=== PATIENT | female | born 1935 | race Caucasian/White ===

== ENCOUNTER → 2017-04-21 | Outpatient (CLI) | payer MEDICARE ==
--- NOTE | 2017-04-21 14:11 | Diagnostic Imaging Report ---
EXAMINATION: Head CT HISTORY: Loss of vision left eye, evaluate for stroke, unsteady gait COMPARISON: None. TECHNIQUE: Multidetector axial images were obtained without contrast from the foramen magnum to the vertex . The images were reconstructed using brain and bone algorithms. Thin section brain images were reformatted into coronal and sagittal planes. Intravenous contrast: None. Motion/streaking artifact limits the evaluation of the skull base and posterior cranial fossa. FINDINGS: Parenchyma: 1. Severe confluent periventricular, marin radiata and centrum semiovale white matter hypodensities, most likely nonspecific microvascular ischemic changes. 2. No mass or hemorrhage. No CT evidence of acute territorial vascular insult. Extra-axial spaces:No abnormal density. No extra-axial fluid collections Brain volume: Normal for age. Ventricles: No hydrocephalus or displacement. Arteries: No density suggestive of thrombus. Dural sinuses: No abnormal density. Extra-axial spaces: No abnormal density. Foramen magnum: No mass, Chiari malformation, or basilar invagination. Sella: No obvious mass. Paranasal/mastoid sinuses: Imaged portions unremarkable. Skull/Scalp: No lytic or blastic lesions. No fractures. IMPRESSION: 1. No acute intracranial hemorrhage or cortical infarcts. 2. Severe confluent white matter chronic microvascular ischemic changes, superimposed acute subcortical infarct cannot be excluded. If clinical concern consider brain MRI for further evaluation. Signed by: Dr. Morena Bundy M.D. on 04/21/2017 2:08 PM
--- NOTE | 2017-04-21 14:15 | Diagnostic Imaging Report ---
EXAMINATION: CT of the orbits without contrast CLINICAL HISTORY: Loss of vision left eye, evaluate for stroke, unsteady gait COMPARISON:Head CT performed on the same day TECHNIQUE: The orbits were scanned utilizing a multidetector helical scanner from the skull base to the vertex. Multiplanar sagittal and coronal reconstructions were performed as well. FINDINGS: Globes: Normal Optic nerves: Normal size. Orbital fat: Normal. Extraocular muscles: Normal. Preseptal soft tissues: Normal. Lacrimal glands: Normal. Sella turcica: No enlargement. Cavernous sinuses: No abnormalities in this unenhanced study. Paranasal sinuses: Clear. Superior ophthalmic veins: Grossly normal abnormalities, no enlarged IMPRESSION: No orbits abnormalities to explain the patient's symptoms. Signed by: Dr. Morena Bundy M.D. on 04/21/2017 2:11 PM
== END ==
LOC: CT 12:29
PROVIDERS: ATTEND Ophthalmology
DX: R27.9 Unspecified lack of coordination (principal); H40.89 Other specified glaucoma; H54.62 Unqualified visual loss, left eye, normal vision right eye
CPT/HCPCS: 70450; 70480

== ENCOUNTER 2019-06-05 06:00 | Inpatient (IN) | payer MEDICARE, OTHER ==
[~2019-06-05] VITALS: Ht 152.4 cm; Wt 66.7 kg
--- OUTSIDE RECORDS SUMMARY | 2019-06-05 06:02 | XMS REPORT ---
Author Author [facility] Address Unknown Phone Unavailable Care Team Providers Care Anode Adjuster Name Role Phone Kate BENNETT Unavailable Unavailable Problems This patient has no known problems. Allergies, Adverse Reactions, Alerts This patient has no known allergies or adverse reactions. Medications This patient has no known medications. Results Test Description Test Time Test Comments Text Results Atomic Results Result Comments CT BRAIN WO [place] [address] Patient Name: TRUNG ROBLERO MR #: [id number] : 1935 Age/Sex: 82/F Req #: [id number] Adm Physician: Ordered by: KIKE BENNETT M.D. Report #: [id number] Location: CT Room/Bed: Procedure: [id number] CT/CT BRAIN WO Exam Date: Exam Time: REPORT STATUS: Signed EXAMINATION: Head CT HISTORY: Loss of vision left eye, evaluate for stroke, unsteady gait COMPARISON: None. TECHNIQUE: Multidetector axial images were obtained without contrast from the foramen magnum to the vertex . The images were reconstructed using brain and bone algorithms. Thin section brain images were reformatted into coronal and sagittal planes. Intravenous contrast: None. Motion/streaking artifact limits the evaluation of the skull base and posterior cranial fossa. FINDINGS: Parenchyma: 1. Severe confluent periventricular, marin radiata and centrum semiovale white matter hypodensities, most likely nonspecific microvascular ischemic changes. 2. No mass or hemorrhage. No CT evidence of acute territorial vascular insult. Extra-axial spaces:No abnormal density. No extra-axial fluid collections Brain volume: Normal for age. Ventricles: No hydrocephalus or displacement. Arteries: No density suggestive of thrombus. Dural sinuses: No abnormal density. Extra-axial spaces: No abnormal density. Foramen magnum: No mass, Chiari malformation, or basilar invagination. Sella: No obvious mass. Paranasal/mastoid sinuses: Imaged portions unremarkable. Skull/Scalp: No lytic or blastic lesions. No fractures. IMPRESSION: 1. No acute intracranial hemorrhage or cortical infarcts. 2. Severe confluent white matter chronic microvascular ischemic changes, superimposed acute subcortical infarct cannot be excluded. If clinical concern consider brain MRI for further evaluation. Signed by: Dr. Florencio Bundy M.D. on 04/21/2017 2:08 PM Dictated By: FLORENCIO BUNDY MD 07 Transcribed By: CHANNING on 04/21/171407 COPY TO: KIKE BENNETT M.D. CT ORBIT/SELLA/PF WO [place] [address] Patient Name: TRUNG ROBLERO MR #: [id number] : 1935 Age/Sex: 82/F Req #: [id number] Adm Physician: Ordered by: KIKE BENNETT M.D. Report #: [id number] Location: CT Room/Bed: Procedure: [id number] CT/CT ORBIT/SELLA/PF WO Exam Date: 04/21/17 Exam Time: 1314 REPORT STATUS: Signed EXAMINATION: CT of the orbits without contrast CLINICAL HISTORY: Loss of vision left eye, evaluate for stroke, unsteady gait COMPARISON:Head CT performed on the same day TECHNIQUE: The orbits were scanned utilizing a multidetector helical scanner from the skull base to the vertex. Multiplanar sagittal and coronal reconstructions were performed as well. FINDINGS: Globes: Normal Optic nerves: Normal size. Orbital fat: Normal. Extraocular muscles: Normal. Preseptal soft tissues: Normal. Lacrimal glands: Normal. Sella turcica: No enlargement. Cavernous sinuses: No abnormalities in this unenhanced study. Paranasal sinuses: Clear. Superior ophthalmic veins: Grossly normal abnormalities, no enlarged IMPRESSION: No orbits abnormalities to explain the patient's symptoms. Signed by: Dr. Florencio Bundy M.D. on 04/21/2017 2:11 PM Dictated By: FLORENCIO BUNDY MD 1411 Transcribed By: CHANNING on 04/21/17 1411 COPY TO: KIKE BENNETT M.D.
--- NOTE | 2019-06-05 06:55 | NUR ---
Report to YAIR Jerry.
[2019-06-05] MEDS ORDERED: ONDANSETRON HCL INJ 2MG/ML 2ML 2 MG/ML VIAL IV PRN ×2 (08:15→12:15)
[2019-06-05] MEDS ORDERED: MORPHINE SULFATE INJ 4 MG/ML INJ 1ML IV PRN (08:15)
--- NOTE | 2019-06-05 08:40 | NUR ---
incontinence care provided for urine for patient with assistance x1. Patient placed into clean adult brief and hospital gown and clean lencho placed under patient. Also placed non slip socks on patient.
[2019-06-05] MEDS: SODIUM CHLORIDE 0.9% 1000ML 1,000 ML IV SCH ×2 (09:00→22:11)
--- NOTE | 2019-06-05 09:03 | Diagnostic Imaging Report ---
Bilateral hips, 2 views History:Status post fall Comparison:None Findings: Acute fracture of the right inferior pubic ramus is noted. No additional acute fracture is identified. Moderate underlying osteopenia. Advanced peripheral vascular calcifications. No additional significant bone or joint space abnormality. Impression: Acute fracture of the right inferior pubic ramus. Signed by: Ismael Berg MD on 06/05/2019 9:00 AM
[2019-06-05 09:12] LABS: BASOPHILS % 0.3 % (0.0-1.0); EOSINOPHILS % 0.2 % (0.0-6.0); HEMATOCRIT 42.4 % (34.2-44.1); HEMOGLOBIN 13.7 g/dL (12.0-16.0); LYMPHOCYTES # (AUTO) 1.4 (1.0-3.2); LYMPHOCYTES % 10.3 % (18.0-39.1); MEAN CORPUSCULAR HEMOGLOBIN 28.6 pg (28-32); MEAN CORPUSCULAR HGB CONC 32.3 g/dL (31-35); MEAN CORPUSCULAR VOLUME 88.5 fL (81-99); MONOCYTES # (AUTO) 0.8 (0.2-0.8); MONOCYTES % 5.7 % (4.4-11.3); PLATELET COUNT 240 x10e3/uL (140-360); RED BLOOD COUNT 4.79 x10e6/uL (3.6-5.1); RED CELL DISTRIBUTION WIDTH 13.5 % (11.7-14.4)
--- NOTE | 2019-06-05 09:23 | NUR ---
attempted to call report was placed on hold for an extended period of time. Will call back.
[2019-06-05 09:29] LABS: ALANINE AMINOTRANSFERASE 11 IU/L (0-55); ALBUMIN 4.3 g/dL (3.5-5.0); ALBUMIN/GLOBULIN RATIO 1.3 (0.8-2.0); ALKALINE PHOSPHATASE 103 IU/L (40-150); ANION GAP 13.4 mmol/L (8-16); BLOOD UREA NITROGEN 13 mg/dL (7-26); BUN/CREATININE RATIO 15 (6-25); CALCIUM 9.5 mg/dL (8.4-10.2); CARBON DIOXIDE 28 mmol/L (22-29); CHLORIDE 97 mmol/L (98-107); CREATININE, SERUM 0.84 mg/dL (0.57-1.11); EST GLOMERULAR FILTRATION RATE > 60 ML/MIN (60-); GLUCOSE 98 mg/dL (74-118); POTASSIUM 4.4 mmol/L (3.5-5.1); SODIUM 134 mmol/L (136-145)
[2019-06-05 09:35] LABS: INR 0.96; PROTHROMBIN TIME 13.3 seconds (11.9-14.5)
[2019-06-05] MEDS ORDERED: TRAVOPROST2.5 ML OU (09:45)
[2019-06-05] MEDS ORDERED: LOPRESSOR25 MG PO (09:45)
[2019-06-05] MEDS ORDERED: CITALOPRAM HBR20 MG PO (09:45)
[2019-06-05] MEDS ORDERED: OSELTAMIVIR PHO75 MG (09:45)
[2019-06-05] MEDS ORDERED: TIMOLOL MALEATE5 M1 (09:45)
[2019-06-05] MEDS ORDERED: EZETIMIBE10 MG PO (09:45)
[2019-06-05] MEDS ORDERED: OMEPRAZOLE40 MG PO (09:45)
[2019-06-05] MEDS ORDERED: SIMVASTATIN40 MG PO (09:45)
[2019-06-05] MEDS ORDERED: CARBIDOPA-LEVO1 EACH PO (09:45)
[2019-06-05 10:30] VITALS: BP 195/85
[2019-06-05 10:42] VITALS: BP 195/85
--- NOTE | 2019-06-05 10:48 | NUR ---
Patient arrived to the unit @ 1012 from the ER via stretcher. Patient in stable condition, no s/s of distress. No complaints of pain. Air pump applied. Upon assessment heel protectors applied bilaterally. Bilateral bruising noted to the hands. Left heel blanchable redness noted. IV fluids infusing. Bed low and locked. Bed alarm in place and working. call light within reach.
[2019-06-05] MEDS ORDERED: ACETAMINOPHEN 325 MG TAB PO PRN (12:15)
[2019-06-05] MEDS ORDERED: GUAIFENESI100 MG/5 M PO (12:36)
[2019-06-05] MEDS ORDERED: ASPIR 8181 MG PO (12:36)
[2019-06-05] MEDS ORDERED: NEPHRO-VITE TABL1 EA PO (12:36)
[2019-06-05] MEDS ORDERED: ASCORBIC ACID500 MG PO (12:36)
[2019-06-05] MEDS ORDERED: TRAVATAN Z OD (12:36)
[2019-06-05] MEDS ORDERED: SODIUM CHLORIDE1 GM PO (12:36)
[2019-06-05] MEDS ORDERED: IPRAT-ALBUT 0.5-3 ML INH (12:36)
[2019-06-05] MEDS ORDERED: NITROGLYCERIN0.4 MG SL (12:36)
[2019-06-05] MEDS ORDERED: FERROUS SULFAT325 MG PO (12:36)
[2019-06-05] MEDS ORDERED: Lorazepam PO (12:36)
[2019-06-05] MEDS ORDERED: MAALOX MAXIMUM355 ML PO (12:38)
[2019-06-05] MEDS ORDERED: ALBUTEROL/IPRATROPIUM 3 ML NEB NEB PRN (12:45)
[2019-06-05] MEDS: METOPROLOL TARTRATE 25 MG TAB PO SCH ×2 (13:15→21:30)
[2019-06-05] MEDS: CEFTRIAXONE SOD 1 GM/NS 50 ML 50 ML IV SCH (13:15)
[2019-06-05 13:49] VITALS: BP 140/80
--- NOTE | 2019-06-05 13:50 | NUR ---
DE SANTIAGO INSERTED AT 1340- URINE SAMPLE COLLECTED AND SENT TO LAB. DIAPER APPLIED. PATIENT REPOSITION- BED ALARM APPLIED AND 3 SIDE RAILS RAISED. CALL LIGHT WITHIN REACH- PATIENT INSTRUCTED TO CALL FOR ASSISTANCE NEEDED.
[2019-06-05 14:09] LABS: CLARITY,URINE SL CLOUDY (CLEAR); COLOR,URINE YELLOW (YELLOW); LEUKOCYTE ESTERASE ,URINE 1+ (NEGATIVE); NITRITE,URINE POSITIVE (NEGATIVE)
[2019-06-05 14:10] LABS: BILIRUBIN,URINE NEGATIVE (NEGATIVE); KETONES,URINE TRACE (NEGATIVE); PROTEIN,URINE DIPSTICK TRACE (NEGATIVE); URINE UROBILINOGEN 0.2 mg/dL (0.2 - 1)
[2019-06-05] MEDS: CARBIDOPA/LEVODOPA 10/100 TAB PO SCH ×2 (14:17→21:30)
[2019-06-05 14:21] LABS: BACTERIA,URINE MANY /HPF; EPITHELIAL CELLS,URINE FEW /LPF
[2019-06-05] MEDS ORDERED: TIMOLOL OU (14:39)
[2019-06-05 16:26] VITALS: BP 194/93
--- NOTE | 2019-06-05 16:45 | NUR ---
ORTHOPEDIC CONSULTATION 84 year old female who is a poor historian due to her dementia and parkinsons with complaints of right hip pain. She denies any numbness, paresthesias or loss of distal motor function. Complains of some mild low back pain. PMdHx: Parkinsons, Demential, Anxiety, GERD Allergies: NKDA SurgHx: Unable to obtain FamHx: Non-contributory SocHx: Neg Tob, EtOH, Drugs VS T 98.4 HR 85 RR 18 BP 194/93 O2 96% Bilateral lower legs & back - no open lesions or sores, no gross deformity TTP of Right greater trochanter and superior and inferior pubic rami Motor: +EHL, FHL, TA, G/S Sensation grossly intact Pulses + DP, Post tib Compartments soft Negative calf tenderness Unable to straight leg raise. Pain with heel strike XRays - acute right superior and inferior pubic rami fracture 84 year old female with right superior and inferior pubic rami fracture Plan for CT of Pelvis and Low back Analgesics DVT Prophylaxis If CT demonstrates only superior and inferior pubic rami fracture, patient is WBAT Plan for Physical Therapy BYRON Mable Lawler, DO [facility]
--- NOTE | 2019-06-05 16:52 | NUR ---
ST Note: Order for bedside swallow eval noted. Discussed case with YARI Andino. Pt NPO for procedure. Will complete eval when able.
[2019-06-05] MEDS: LORAZEPAM INJ 2 MG/ML VIAL IV PRN (18:35)
--- NOTE | 2019-06-05 19:25 | NUR ---
PATIENT RETURN TO THE UNIT FROM RADIOLOGY- IN STABLE CONDITION WITH NO S/S OF RESPIRATORY DISTRESS. NO PAIN INDICATED. TELEMETRY APPLIED. DE SANTIAGO INTACT AND DRAINING. HEEL PROTECTORS APPLIED BILATERALLY. BED ALARM APPLIED; 3 RAILS RAISED. CALL LIGHT IS WITHIN REACH, PATIENT INSTRUCTED TO CALL FOR ASSISTANCE NEEDED. BEDSIDE SHIFT REPORT GIVEN TO ONCOMING NURSE.
--- NOTE | 2019-06-05 20:31 | Diagnostic Imaging Report ---
EXAM: CT Pelvis WITHOUT contrast INDICATION: r/o fracture COMPARISON: None. TECHNIQUE: Pelvis were scanned utilizing a multidetector helical scanner from the iliac crest to the pubic symphysis without administration of IV contrast. Coronal and sagittal reformations were obtained. Routine protocol was performed. IV CONTRAST: None ORAL CONTRAST: Water COMPLICATIONS: None RADIATION DOSE: Total DLP: 1058.87 mGy*cm Estimated effective dose: (DLP x 0.015 x size factor) mSv CTDIvol has been reviewed. It is below the limits set by the Radiation Protocol Committee (RPC). FINDINGS: LINES and TUBES: There is a Staley catheter in place. GI TRACT: No abnormal distention, wall thickening, or evidence of bowel obstruction. PELVIC ORGANS/BLADDER: Calcified leiomyomatous uterus. A pessary device is in place. LYMPH NODES: No lymphadenopathy. VESSELS: Aortobiiliac stent in place. PERITONEUM / RETROPERITONEUM: No free air or fluid. BONES: There is a segmental mildly displaced fracture of the right inferior pubic ramus/ischium with half shaft width lateral displacement of the fracture fragment. SOFT TISSUES: Unremarkable. IMPRESSION: Mildly displaced fracture of the right inferior pubic ramus. Signed by: Krik Gracia MD on 06/05/2019 8:28 PM
--- NOTE | 2019-06-05 20:33 | Diagnostic Imaging Report ---
EXAMINATION: CHEST SINGLE (PORTABLE) INDICATION: ^r/o PNA ^[id number] ^[id number]. COMPARISON: None FINDINGS: AP view TUBES and LINES: None. LUNGS/PLEURA: There is left basilar opacity which could be due to combination of atelectasis or effusion. : No pleural effusion or pneumothorax. HEART AND MEDIASTINUM: The cardiomediastinal silhouette is unremarkable. BONES AND SOFT TISSUES: No acute osseous lesion. Soft tissues are unremarkable. UPPER ABDOMEN: No free air under the diaphragm. IMPRESSION: Left basilar opacity which could be due to combination of atelectasis or effusion. Signed by: Kirk Gracia MD on 06/05/2019 8:30 PM
[2019-06-05 20:34] VITALS: BP 189/93
[2019-06-05 21:00] VITALS: BP 189/93
[2019-06-05] MEDS: TRAVOPROST(OPTH) 2.5 ML BTL OP SCH (21:30)
[2019-06-05] MEDS: SIMVASTATIN 40 MG TAB PO SCH (21:30)
[2019-06-06] VITALS (7 sets, daily range): BP systolic 135–183; BP diastolic 69–90
[2019-06-06] MEDS: HYDRALAZINE HCL 20 MG/ML VIAL IV PRN ×2 (05:45→11:24)
--- NOTE | 2019-06-06 07:00 | NUR ---
Bedside report and rounding completed with oncoming nurse. Patient in bed with call light within reach. Bed locked and in lowest position. No issues or concerns noted.
--- NOTE | 2019-06-06 07:15 | NUR ---
PATIENT IS ALERT TO SELF -REMAINS IN STABLE CONDITION WITH NO S/S OF RESPIRATORY DISTRESS. NO PAIN INDICATED. IV FLUIDS INFUSING. TELEMETRY APPLIED. DE SANTIAGO INTACT AND DRAINING; DIAPER APPLIED. BED ALARM AND 3 SIDE RAILS APPLIED. CALL LIGHT IS WITHIN REACH, PATIENT INSTRUCTED TO CALL FOR ASSISTANCE NEEDED.
--- NOTE | 2019-06-06 07:34 | Diagnostic Imaging Report ---
History: Right hip pain, rule out fracture. Comparison studies: Same day pelvic CT. Technique: Axial images were obtained through the lumbar spine. Coronal and sagittal images reconstructed from the axial data. Dose modulation, iterative reconstruction, and/or weight based adjustment of the mA/kV was utilized to reduce the radiation dose to as low as reasonably achievable. Intravenous contrast: None Findings: Number of non-rib bearing vertebral bodies: 5 Alignment: S-shaped lumbar curvature with lower lumbar dextrocurvature and upper lumbar levocurvature. Minimal Grade 1 retrolisthesis of T11 on T12 and L1 on L2 and 5 mm Grade 1 anterolisthesis of L4 on L5 and 7 mm Grade 1 anterolisthesis of L5 on S1. Soft tissues: No gross acute abnormalities. Paraspinal muscles: Fatty-replaced atrophic changes, worse/severe at the lumbosacral junction. Sacroiliac joints: Mild degenerative changes bilaterally. Vertebrae: Bones are demineralized. No destructive lytic or blastic lesions or evidence of infection. No acute lumbar spine fracture. The T12 and L1 vertebral bodies are fused. Mild chronic vertebral body height loss present at T11. Degenerative changes: Hypertrophic lumbar spinous processes which articulate with degenerative there are in a configuration which can be seen with Baastrup's disease. T10-T11: Severely degenerated disc with chronic endplate changes. T11-T12: Severely degenerated disc with sclerotic degenerative endplate changes. MRN retrolisthesis of T11 on T12 and facet arthrosis result in moderate canal stenosis and severe bilateral foraminal stenosis. T12-L1: Fused disc space with moderate right foraminal stenosis due to facet arthrosis. L1-L2: Moderately degenerated disc. Minimal retrolisthesis of L1 on L2 with associated disc osteophyte complex and facet arthrosis with moderate bilateral foraminal stenosis. L2-L3: Mildly degenerated disc with bilateral facet arthrosis without significant canal or foraminal stenosis. L3-L4: Mildly degenerated disc. Disc bulge, thickened ligamentum flavum and bilateral facet arthrosis with mild canal stenosis at moderate left and mild right foraminal stenosis. L4-L5: Severely degenerated disc. Grade 1 anterolisthesis of L4 on L5 with associated uncovered disc/disc osteophyte complex, thickened ligamentum flavum and severe facet arthrosis with severe canal stenosis and severe bilateral foraminal stenosis. L5-S1: Severely degenerated disc. Grade 1 anterolisthesis of L5 on S1 with associated uncovered disc/disc osteophyte complex, thickened ligamentum flavum and severe bilateral facet arthrosis with moderate canal stenosis and severe bilateral foraminal stenosis. Sacroiliac joints: Degenerative changes present at the SI joints bilaterally. Nondisplaced right lateral sacral fracture which may extend to the sacroiliac joint inferiorly. Incidental findings: * Moderate scattered calcified atherosclerosis with aortoiliac stent graft in place (cannot evaluate vessel/stent patency on this noncontrast exam). * Partially imaged calcified uterine fibroids and pessary. * Right upper quadrant cholecystectomy clips. * Partially imaged calcified granuloma along the right lobe of the liver. * A 2.5 cm right adrenal nodule is favored to be an adenoma. CT or MRI, adrenal mass protocol, may provide more definitive diagnosis, as warranted. IMPRESSION: 1. No acute lumbar spine fracture. 2. Nondisplaced right lateral sacral fracture. 3. Advanced multilevel degenerative changes with advanced multilevel disc degeneration facet arthrosis and multilevel degenerative listhesis. 4. Degenerative canal stenosis, moderate at T11-T12, severe at L4-L5 and moderate L5-S1. 5. Varying degrees of moderate to severe multilevel foraminal stenosis as described. 6. Incidental findings as described. Signed by: Dr. Unruly Mark M.D. on 06/06/2019 8:00 AM
[2019-06-06 08:02] LABS: BASOPHILS % 0.3 % (0.0-1.0); EOSINOPHILS % 0.3 % (0.0-6.0); HEMATOCRIT 38.8 % (34.2-44.1); HEMOGLOBIN 12.6 g/dL (12.0-16.0); LYMPHOCYTES # (AUTO) 1.1 (1.0-3.2); LYMPHOCYTES % 10.6 % (18.0-39.1); MEAN CORPUSCULAR HEMOGLOBIN 28.7 pg (28-32); MEAN CORPUSCULAR HGB CONC 32.5 g/dL (31-35); MEAN CORPUSCULAR VOLUME 88.4 fL (81-99); MONOCYTES # (AUTO) 0.7 (0.2-0.8); MONOCYTES % 7.4 % (4.4-11.3); NEUTROPHILS # (AUTO) 8.1 (2.1-6.9); NEUTROPHILS % 81.2 % (38.7-80.0); PLATELET COUNT 195 x10e3/uL (140-360); RED BLOOD COUNT 4.39 x10e6/uL (3.6-5.1); RED CELL DISTRIBUTION WIDTH 13.5 % (11.7-14.4)
[2019-06-06 08:20] LABS: ALBUMIN 3.7 g/dL (3.5-5.0); ALBUMIN/GLOBULIN RATIO 1.2 (0.8-2.0); ALKALINE PHOSPHATASE 88 IU/L (40-150); ANION GAP 12.6 mmol/L (8-16); BLOOD UREA NITROGEN 11 mg/dL (7-26); BUN/CREATININE RATIO 15 (6-25); CALCIUM 8.8 mg/dL (8.4-10.2); CARBON DIOXIDE 25 mmol/L (22-29); CHLORIDE 98 mmol/L (98-107); CREATININE, SERUM 0.74 mg/dL (0.57-1.11); EST GLOMERULAR FILTRATION RATE > 60 ML/MIN (60-); GLUCOSE 93 mg/dL (74-118); POTASSIUM 3.6 mmol/L (3.5-5.1); SODIUM 132 mmol/L (136-145)
[2019-06-06 08:23] LABS: ALANINE AMINOTRANSFERASE < 6 IU/L (0-55)
[2019-06-06] MEDS: PANTOPRAZOLE SOD 40 MG TABEC PO SCH (08:23)
[2019-06-06] MEDS: TIMOLOL MALEATE 0.5% OPTH DRP 5 ML BTL OU SCH (08:23)
[2019-06-06] MEDS: METOPROLOL TARTRATE 25 MG TAB PO SCH ×2 (08:25→21:39)
[2019-06-06] MEDS: CARBIDOPA/LEVODOPA 10/100 TAB PO SCH ×3 (08:25→21:39)
[2019-06-06] MEDS: EZETIMIBE 10 MG TAB PO SCH (08:25)
[2019-06-06] MEDS: CITALOPRAM HYDROBROMIDE 20 MG TAB PO SCH (08:25)
[2019-06-06 08:29] LABS: B-TYPE NATRIURETIC PEPTIDE2 315.4 pg/mL (0-100)
[2019-06-06 08:40] LABS: THYROID STIMULATING HORMONE 2.233 uIU/mL (0.350-4.940)
[2019-06-06] MEDS ORDERED: TRAVOPROST OU SCH (09:00)
[2019-06-06] MEDS: CEFTRIAXONE SOD 1 GM/NS 50 ML 50 ML IV SCH (12:10)
--- NOTE | 2019-06-06 12:45 | NUR ---
Pt sleeping soundly and no family present. Executive Manager left a card describing availability of hot blast worker and instructions on how to contact a hot blast worker. CARA RASMUSSEN Executive Manager Spiritual Care Department O: [phone]
[2019-06-06] MEDS: LORAZEPAM INJ 2 MG/ML VIAL IV PRN (15:53)
[2019-06-06] MEDS: SODIUM CHLORIDE 0.9% 1000ML 1,000 ML IV SCH (16:43)
--- NOTE | 2019-06-06 17:07 | NUR ---
Nutrition Intervention Note RD Recommendation(s) for Physician: - Continue current diet per CEMENT LOADER rec's - Recommend Ensure Compact TID for adequacy - MVI with minerals once daily for adequacy Plan of Care: RD following, monitoring for tolerance and adequacy, ONS rec's Nutrition reason for involvement: Nutrition Risk Trigger- MST2 RD Assessment 06/05: 84 YOF admitted s/p fall with R hip pain and probable fx. Pt seen today per MST screen, pt sleeping and per chart poor historian 2/2 dementia. Pt appears well nourished, no family present at bedside. Spoke with RN Thu, pt seen by CEMENT LOADER today and she recommended pureed diet. Per RN pt not eating well, but will drink liquids- recommended Ensure Compat TID, RN to order. Chart reviewed. Will continue to monitor. Principal Problems/Diagnoses: R hip pain s/p fall PMH: Parkinson's, dementia, GERD GI: LBM 06/05 Skin: skin intact Labs: 06/05: Na 132, K 3.6, BUN 11, Cr 0.74, Gluc 93, A1C 4.9 Meds: sinemet, abx, zetia, protonix, zocor, zofran, morphine Ht: 60 in Wt: 147 lb BMI: 28.7 kg/m2 IBW: 100 lb Malnutrition Evaluation (06/06/19) The patient does not meet criteria for a specified degree of malnutrition at this time. Will re-evaluate at follow-up as appropriate. Unable to complete assessment, pt unable to provide hx. Energy intake: Unable to assess Weight loss: Unable to assess Fat loss: none, ample tricept fold thickness Muscle loss: none, shoulder round- age related changes noted Supporting Evidence: Fluid accumulation: none Functional Status: not assessed Nutrition Prescription (Diet Order): Pureed Estimated Nutritional Needs: 1894-3407 calories/day (18-22 kcal/kg CBW) 67-100 g protein/day (1-1.5 g pro/kg CBW) Diet Adequacy: Not meeting calorie needs, Not meeting protein needs Diet Tolerance: tolerating po Diet Education Needs Assessment: Diet education not indicated at this time, modified texture diet and pt with hx of dementia Nutrition Care Level: Mod Nutrition Diagnosis: Inadequate energy and protein intake related to current medical conditions as evidenced by not meeting needs. Goal: Patient will meet 75-100% of estimated needs by follow up Progress: N/A Interventions: - texture modified diet, Commercial beverage, Prescription medications, Multivitamin/mineral therapy, Collaboration with other providers Monitoring/Evaluation: - Total energy intake, Total protein intake, Modified diet, Liquid supplement, Weight change Signed: Luma Jennings RD, LD, [facility]
[2019-06-06] MEDS ORDERED: ALUMINUM HYDROXIDE PO PRN (17:30)
[2019-06-06] MEDS ORDERED: ALBUTEROL/IPRATROPIUM 3 ML NEB INH PRN (17:30)
[2019-06-06] MEDS ORDERED: NITROGLYCERIN 0.4 MG SUBL SL PRN (17:30)
[2019-06-06] MEDS ORDERED: [UNRECOGNIZED DRUG - OTHER] PO PRN (17:30)
[2019-06-06] MEDS ORDERED: MAGNESIUM HYDROXIDE PO PRN (17:30)
[2019-06-06] MEDS ORDERED: SIMETHICONE PO PRN (17:30)
[2019-06-06] MEDS ORDERED: MAGNESIUM/ALUMINUM/SIMETHICONE 30 ML UDC PO PRN (17:45)
[2019-06-06] MEDS: AMLODIPINE BESYLATE 10 MG TAB PO SCH (18:21)
--- NOTE | 2019-06-06 19:15 | NUR ---
PATIENT IN STABLE CONDITION WITH NO S/S OF RESPIRATORY DISTRESS. NO PAIN INDICATED. TELEMETRY APPLIED. DE SANTIAGO INTACT AND DRAINING; DIAPER APPLIED. HEEL PROTECTORS APPLIED BILATERALLY. BED ALARM APPLIED; 3 SIDE RAILS RAISED. PATIENT TURNED TO HER RIGHT SIDE. CALL LIGHT IS WITHIN REACH, PATIENT INSTRUCTED TO CALL FOR ASSISTANCE NEEDED. BEDSIDE SHIFT REPORT GIVEN TO ONCOMING NURSE.
--- NOTE | 2019-06-06 19:15 | NUR ---
Bedside report and rounding completed with offgoing nurse. Patient in bed with call light within reach. Bed locked and in lowest position, bed alarm on and active. No issues or concerns noted.
[2019-06-06] MEDS ORDERED: LORAZEPAM 0.5 MG PO SCH (21:00)
[2019-06-06] MEDS: TRAVOPROST(OPTH) 2.5 ML BTL OP SCH (21:38)
[2019-06-06] MEDS: LORAZEPAM 0.5 MG TAB PO SCH (21:38)
[2019-06-06] MEDS: SIMVASTATIN 40 MG TAB PO SCH (21:39)
[2019-06-06] MEDS: SODIUM CHLORIDE 1 GM TAB PO SCH (21:39)
[2019-06-07] VITALS (7 sets, daily range): BP systolic 92–177; BP diastolic 53–90
--- NOTE | 2019-06-07 00:45 | NUR ---
Called to room by [id number] DEVELOPER, Noted patient restless and holding alvarado in hand. No blood noted, ballon and catheter intact. No c/o pain or issues noted. 200 cc drained from alvarado, brief applied. Due to void. Monitoring closely.Will notify MD regarding patient removing alvarado catheter in morning. Bed alarm on and active.
--- NOTE | 2019-06-07 02:22 | NUR ---
Patient agitated and pulling at off blanket, gown and tele. Will administer PRN ativan
[2019-06-07] MEDS: LORAZEPAM INJ 2 MG/ML VIAL IV PRN (02:24)
[2019-06-07 05:56] LABS: BASOPHILS % 0.3 % (0.0-1.0); HEMATOCRIT 38.2 % (34.2-44.1); HEMOGLOBIN 12.5 g/dL (12.0-16.0); LYMPHOCYTES # (AUTO) 0.8 (1.0-3.2); LYMPHOCYTES % 6.6 % (18.0-39.1); MEAN CORPUSCULAR HEMOGLOBIN 28.8 pg (28-32); MEAN CORPUSCULAR HGB CONC 32.7 g/dL (31-35); MONOCYTES # (AUTO) 1.1 (0.2-0.8); MONOCYTES % 8.9 % (4.4-11.3); NEUTROPHILS # (AUTO) 9.9 (2.1-6.9); NEUTROPHILS % 83.8 % (38.7-80.0); PLATELET COUNT 182 x10e3/uL (140-360); RED BLOOD COUNT 4.34 x10e6/uL (3.6-5.1); RED CELL DISTRIBUTION WIDTH 13.7 % (11.7-14.4)
[2019-06-07 06:28] LABS: ANION GAP 13.3 mmol/L (8-16); BLOOD UREA NITROGEN 14 mg/dL (7-26); BUN/CREATININE RATIO 19 (6-25); CALCIUM 8.9 mg/dL (8.4-10.2); CARBON DIOXIDE 22 mmol/L (22-29); CHLORIDE 101 mmol/L (98-107); CREATININE, SERUM 0.72 mg/dL (0.57-1.11); EST GLOMERULAR FILTRATION RATE > 60 ML/MIN (60-); GLUCOSE 101 mg/dL (74-118); MAGNESIUM 1.7 MG/DL (1.3-2.1); PHOSPHORUS 2.4 MG/DL (2.3-4.7); POTASSIUM 3.3 mmol/L (3.5-5.1); SODIUM 133 mmol/L (136-145)
--- NOTE | 2019-06-07 07:16 | NUR ---
Notified oncoming nurse patient due to void after self removal of alvarado.
--- NOTE | 2019-06-07 07:20 | NUR ---
PT IN BED SLEEPING NO S/S DISCOMFORT,PT VOIDED WITHOUT DIFFICULTY.
[2019-06-07] MEDS: PANTOPRAZOLE SOD 40 MG TABEC PO SCH (08:00)
[2019-06-07] MEDS: CITALOPRAM HYDROBROMIDE 20 MG TAB PO SCH (09:00)
[2019-06-07] MEDS: AMLODIPINE BESYLATE 10 MG TAB PO SCH (09:00)
[2019-06-07] MEDS: METOPROLOL TARTRATE 25 MG TAB PO SCH ×2 (09:00→20:37)
[2019-06-07] MEDS: ASPIRIN 81 MG CHEW TAB PO SCH (09:00)
[2019-06-07] MEDS: LORAZEPAM 0.5 MG TAB PO SCH ×3 (09:00→20:38)
[2019-06-07] MEDS: ASCORBIC ACID 500 MG TAB PO SCH (09:00)
[2019-06-07] MEDS: TIMOLOL MALEATE 0.5% OPTH DRP 5 ML BTL OU SCH (09:00)
[2019-06-07] MEDS: FOLIC ACID/CYANOCOB/PYRIDOXINE TAB PO SCH (09:00)
[2019-06-07] MEDS: EZETIMIBE 10 MG TAB PO SCH (09:00)
[2019-06-07] MEDS: FERROUS SULFATE 325 MG TAB PO SCH (09:00)
[2019-06-07] MEDS: CARBIDOPA/LEVODOPA 10/100 TAB PO SCH ×3 (09:00→20:38)
[2019-06-07] MEDS: SODIUM CHLORIDE 1 GM TAB PO SCH ×3 (09:00→20:38)
[2019-06-07] MEDS ORDERED: MAGNESIUM SULF 1GRAM/DEXTROSE 100 ML IV ONE (10:15)
[2019-06-07] MEDS ORDERED: POTASSIUM CHLORIDE 20 MEQ TAB CR PO ONE (12:15)
[2019-06-07] MEDS: CEFTRIAXONE SOD 1 GM/NS 50 ML 50 ML IV SCH (12:22)
--- NOTE | 2019-06-07 12:30 | NUR ---
PT RESTING NO S/S DISCOMFORT,
[2019-06-07] MEDS: SODIUM CHLORIDE 0.9% 1000ML 1,000 ML IV SCH (14:00)
[2019-06-07] MEDS: HYDROCODONE/APAP 5MG-325MG TAB PO PRN (17:35)
--- NOTE | 2019-06-07 17:35 | NUR ---
PT C/O RT HIP PAIN MEDICATED.PUREWICK IN PLACE VOIDING WITHOUT DIFFICULTY
--- NOTE | 2019-06-07 20:00 | NUR ---
Received change of shift report from AM nurse. Walking rounds completed.
[2019-06-07] MEDS: SIMVASTATIN 40 MG TAB PO SCH (20:38)
[2019-06-07] MEDS: TRAVOPROST(OPTH) 2.5 ML BTL OP SCH (21:00)
[2019-06-07] MEDS ORDERED: HALOPERIDOL LACTATE 5 MG/ML VIAL IM PRN (21:15)
[2019-06-07] MEDS ORDERED: OLANZAPINE 5 MG TAB PO PRN (21:15)
[2019-06-08] VITALS (8 sets, daily range): BP systolic 106–176; BP diastolic 58–91
--- NOTE | 2019-06-08 05:11 | NUR ---
Patient resting quitly at this time. Patient had a BM med. candelaria.
--- NOTE | 2019-06-08 07:15 | NUR ---
PT UP IN BED. VERY AGITATED. CURSING THE STAFF. NO S/S OF DISCOMFORT.
[2019-06-08 07:21] LABS: BASOPHILS % 0.4 % (0.0-1.0); EOSINOPHILS # (AUTO) 0.1 (0.0-0.4); EOSINOPHILS % 1.5 % (0.0-6.0); HEMATOCRIT 39.8 % (34.2-44.1); HEMOGLOBIN 12.9 g/dL (12.0-16.0); MEAN CORPUSCULAR HEMOGLOBIN 28.8 pg (28-32); MEAN CORPUSCULAR HGB CONC 32.4 g/dL (31-35); MEAN CORPUSCULAR VOLUME 88.8 fL (81-99); MONOCYTES # (AUTO) 1.2 (0.2-0.8); MONOCYTES % 12.5 % (4.4-11.3); NEUTROPHILS # (AUTO) 7.1 (2.1-6.9); NEUTROPHILS % 75.3 % (38.7-80.0); PLATELET COUNT 173 x10e3/uL (140-360); RED BLOOD COUNT 4.48 x10e6/uL (3.6-5.1)
[2019-06-08] MEDS: PANTOPRAZOLE SOD 40 MG TABEC PO SCH ×2 (07:30→17:24)
[2019-06-08 07:40] LABS: ANION GAP 12.3 mmol/L (8-16); BLOOD UREA NITROGEN 13 mg/dL (7-26); BUN/CREATININE RATIO 20 (6-25); CALCIUM 8.8 mg/dL (8.4-10.2); CARBON DIOXIDE 22 mmol/L (22-29); CHLORIDE 103 mmol/L (98-107); CREATININE, SERUM 0.65 mg/dL (0.57-1.11); EST GLOMERULAR FILTRATION RATE > 60 ML/MIN (60-); GLUCOSE 87 mg/dL (74-118); MAGNESIUM 1.9 MG/DL (1.3-2.1); POTASSIUM 4.3 mmol/L (3.5-5.1); SODIUM 133 mmol/L (136-145)
[2019-06-08] MEDS: TIMOLOL MALEATE 0.5% OPTH DRP 5 ML BTL OU SCH (09:00)
[2019-06-08] MEDS: EZETIMIBE 10 MG TAB PO SCH ×2 (09:00→17:25)
[2019-06-08] MEDS: METOPROLOL TARTRATE 25 MG TAB PO SCH ×2 (09:00→20:47)
[2019-06-08] MEDS: ASPIRIN 81 MG CHEW TAB PO SCH ×2 (09:00→17:24)
[2019-06-08] MEDS: AMLODIPINE BESYLATE 10 MG TAB PO SCH ×2 (09:00→17:25)
[2019-06-08] MEDS: SODIUM CHLORIDE 1 GM TAB PO SCH ×3 (09:00→20:49)
[2019-06-08] MEDS: CARBIDOPA/LEVODOPA 10/100 TAB PO SCH ×3 (09:00→20:48)
[2019-06-08] MEDS: ASCORBIC ACID 500 MG TAB PO SCH (09:00)
[2019-06-08] MEDS ORDERED: LORAZEPAM 0.5 MG TAB PO SCH (09:00)
[2019-06-08] MEDS: FOLIC ACID/CYANOCOB/PYRIDOXINE TAB PO SCH (09:00)
[2019-06-08] MEDS: FERROUS SULFATE 325 MG TAB PO SCH (09:00)
--- NOTE | 2019-06-08 09:00 | NUR ---
PT STILL AGITATED. REFUSING TO TAKE MEDICATIONS.
[2019-06-08] MEDS: SODIUM CHLORIDE 0.9% 1000ML 1,000 ML IV SCH ×2 (09:33→20:49)
--- NOTE | 2019-06-08 10:12 | Consultation ---
DATE OF CONSULTATION: 06/07/2019 Psychiatric Consultation The patient evaluated and events noted. REASON FOR CONSULTATION: To evaluate the patient's psychosis. HISTORY OF PRESENT ILLNESS: The patient is an 84-year-old female, admitted to the hospital for right hip pain. Psychiatric consultation is called to evaluate the patient's psychosis and mood. Upon evaluation today, the patient is found to be in the room. She is drowsy and hard of hearing. She is alert, awake, and oriented to self. She thinks she is at her assisted living facility. She does not know the year. She denies any depression. Denies any anxiety. She reports intermittent sleep issues. She denies any hallucination. She denies any suicidal ideation or homicidal ideation. She reports intermittent problem with appetite. As per nurse, the patient has been calm, but as per nurse report, the patient's appetite has been poor. According to medical history, the patient has a history of Parkinson's, dementia, anxiety, and GERD. PAST PSYCHIATRIC HISTORY: The patient has a history of dementia, anxiety, and Parkinson's. Details not available and the patient is unable to answer questions due to her mentation. FAMILY HISTORY: Unknown. SOCIAL HISTORY: The patient lives at an assisted living facility. MENTAL STATUS EXAM: The patient is an elderly female. She is alert, awake, and oriented to self. Affect is blunt. Mood is anxious. She denies any suicidal or homicidal ideation. Denies any hallucination. Thought process is loose. Insight and judgment are limited to poor. Memory appears to be grossly impaired. CURRENT MEDICATIONS: 1. Ativan 0.5 mg p.o. 3 times a day schedule. 2. Ativan 0.5 mg IV q.6 hours p.r.n. 3. Sodium chloride. 4. Simvastatin. 5. Sinemet. 6. [place]. 7. Ceftriaxone. 8. Norvasc. 9. Folic acid. 10. Ferrous sulfate. 11. Aspirin. 12. Ascorbic acid. 13. Timolol. 14. Ezetimibe. 15. Celexa 30 mg p.o. daily. 16. Protonix. 17. Travatan. 18. Hydralazine. 19. Metoprolol. 20. Magnesium aluminum silicate. 21. Nitroglycerin. 22. Albuterol/ipratropium. 23. Ondansetron. 24. Acetaminophen. 25. Morphine. CURRENT LABORATORY DATA: WBC 11.83, RBC 4.34, hemoglobin 12.5, hematocrit 38.2, platelets 182. Sodium 133, potassium 3.3, chloride 101, CO2 22, BUN 14. ASSESSMENT: 1. Unspecified by dementia with behavior disturbances. 2. Unspecified psychosis. 3. History of anxiety. PLAN: 1. Add Zyprexa 2.5 mg p.o. q.6 hours p.r.n. 2. Add Haldol 1 mg IM q.6 hours p.r.n. 3. Continue with Ativan p.r.n. IV. 4. Reduce Ativan 0.5 mg p.o. 3 times to 0.5 mg p.o. twice a day. 5. Continue Celexa daily by plan to reduce it as possible. 6. Monitor for mood and agitation. Thank you for this consultation. Dictated by Mignon Red PA-C MD RADHA DuffV/SHERRY /[id number]
--- NOTE | 2019-06-08 10:30 | NUR ---
PSYCHE SHAUNA VU HERE AND INFORMED OF PTS AGITATION AND REFUSING TO TAKE MEDS.
[2019-06-08] MEDS: LORAZEPAM INJ 2 MG/ML VIAL IV PRN (11:08)
--- NOTE | 2019-06-08 11:09 | NUR ---
PT STILL VERY AGITATED CUSING AND SCREAMING AT STAFF REFUSES TO LET ANY ONE TOUCH HER,MEDICATED.
[2019-06-08] MEDS: CEFTRIAXONE SOD 1 GM/NS 50 ML 50 ML IV SCH (13:00)
--- NOTE | 2019-06-08 16:33 | NUR ---
Nutrition Intervention Note RD Recommendation(s) for Physician: - Continue current diet per JEWELER APPRENTICE - Continue Ensure Compact TID for adequacy - MVI with minerals once daily for adequacy Plan of Care: RD following, monitoring for tolerance and adequacy Nutrition reason for involvement: follow up RD Assessment 06/07: Follow up. Per RN, pt is very agitated and did not eat much today. Yesterday, RN reported that pt ate well. Recommend to continue Ensure Compact TID for added nutrition. Will continue to monitor. 06/05: 84 YOF admitted s/p fall with R hip pain and probable fx. Pt seen today per MST screen, pt sleeping and per chart poor historian 04/09 dementia. Pt appears well nourished, no family present at bedside. Spoke with RN Thu, pt seen by JEWELER APPRENTICE today and she recommended pureed diet. Per RN pt not eating well, but will drink liquids- recommended Ensure Compat TID, RN to order. Chart reviewed. Will continue to monitor. Principal Problems/Diagnoses: R hip pain s/p fall PMH: Parkinson's, dementia, GERD GI: LBM 06/06 Skin: skin intact Labs: 06/07: Na 133, K 4.3, BUN 13, Cr 0.65, Glu 87 06/05: Na 132, K 3.6, BUN 11, Cr 0.74, Gluc 93, A1C 4.9 Meds: hydralazine, Vitamin C, metoprolol, zofran Ht: 60 in Wt: 147 lb BMI: 28.7 kg/m2 IBW: 100 lb Malnutrition Evaluation (06/06/19) The patient does not meet criteria for a specified degree of malnutrition at this time. Will re-evaluate at follow-up as appropriate. Unable to complete assessment, pt unable to provide hx. Energy intake: Unable to assess Weight loss: Unable to assess Fat loss: none, ample tricept fold thickness Muscle loss: none, shoulder round- age related changes noted Supporting Evidence: Fluid accumulation: none Functional Status: not assessed Nutrition Prescription (Diet Order): Pureed Estimated Nutritional Needs: 5375-4299 calories/day (18-22 kcal/kg CBW) 67-100 g protein/day (1-1.5 g pro/kg CBW) Diet Adequacy: Not meeting calorie needs, Not meeting protein needs Diet Tolerance: tolerating po Diet Education Needs Assessment: Diet education not indicated at this time, modified texture diet and pt with hx of dementia Nutrition Care Level: Moderate Nutrition Diagnosis: Inadequate energy and protein intake related to current medical conditions as evidenced by not meeting needs. Goal: Patient will meet 75-100% of estimated needs by follow up Progress: not progressing Interventions: - texture modified diet, Commercial beverage, Multivitamin/mineral therapy, Collaboration with other providers Monitoring/Evaluation: - Total energy intake, Total protein intake, Modified diet, Liquid supplement, Weight change Signed: Katelynn Rhodes RD, LD
[2019-06-08] MEDS: HYDROCODONE/APAP 5MG-325MG TAB PO PRN (17:23)
[2019-06-08] MEDS: CITALOPRAM HYDROBROMIDE 20 MG TAB PO SCH (17:24)
--- NOTE | 2019-06-08 17:36 | NUR ---
PT MUCH CALMER ,STILL REFUSES TO EAT ,NO DISTRESS NTOED.
--- NOTE | 2019-06-08 19:30 | NUR ---
Received report from day nurse. patient is resting quietly in the bed. patient has a pure whick attached to wall suction. patient is on O2 via the nasal cannula. respirations are even and unlabored. no complaints of pain or discomfort noted. will continue to monitor patient.
[2019-06-08] MEDS: SIMVASTATIN 40 MG TAB PO SCH (20:49)
[2019-06-08] MEDS: TRAVOPROST(OPTH) 2.5 ML BTL OP SCH (21:00)
[2019-06-08] MEDS ORDERED: OLANZAPINE 5 MG TAB PO SCH ×2 (21:00)
[2019-06-09] VITALS: BP 114/58
--- NOTE | 2019-06-09 00:40 | NUR ---
patient iv is leaking. iv has been taken out and replaced with a 22 gauge iv. patient tolerated procedure well. iv is patent. dressing applied to iv is clean, dry and intact.
[2019-06-09] MEDS: HYDROCODONE/APAP 5MG-325MG TAB PO PRN (05:29)
--- NOTE | 2019-06-09 06:45 | NUR ---
patient is resting in bed. bed is in lowest position and call light is within reach. denies pain or discomfort.
[2019-06-09 07:30] VITALS: BP 120/56
--- NOTE | 2019-06-09 07:30 | NUR ---
PATIENT IN BED RESTING WITH NO S/S OF DISCOMFORT. O2 IN PLACE VIA N/C. BED IN LOWER POSITION, CALL LIGHT AT REACH.
[2019-06-09 07:34] VITALS: BP 120/56
[2019-06-09] MEDS: PANTOPRAZOLE SOD 40 MG TABEC PO SCH (08:15)
[2019-06-09] MEDS: EZETIMIBE 10 MG TAB PO SCH (09:39)
[2019-06-09] MEDS: TIMOLOL MALEATE 0.5% OPTH DRP 5 ML BTL OU SCH (09:39)
[2019-06-09] MEDS: SODIUM CHLORIDE 1 GM TAB PO SCH ×2 (09:39→15:19)
[2019-06-09] MEDS: AMLODIPINE BESYLATE 10 MG TAB PO SCH (09:39)
[2019-06-09] MEDS: CARBIDOPA/LEVODOPA 10/100 TAB PO SCH ×2 (09:39→15:19)
[2019-06-09] MEDS: ASPIRIN 81 MG CHEW TAB PO SCH (09:39)
[2019-06-09] MEDS: FERROUS SULFATE 325 MG TAB PO SCH (09:39)
[2019-06-09] MEDS: ASCORBIC ACID 500 MG TAB PO SCH (09:39)
[2019-06-09] MEDS: CITALOPRAM HYDROBROMIDE 20 MG TAB PO SCH (09:39)
[2019-06-09] MEDS: FOLIC ACID/CYANOCOB/PYRIDOXINE TAB PO SCH (09:39)
[2019-06-09] MEDS: METOPROLOL TARTRATE 25 MG TAB PO SCH (09:39)
[2019-06-09] MEDS ORDERED: ZYPREXA5 MG PO ×2 (12:00)
[2019-06-09] MEDS ORDERED: Haloperidol Lactate IM (12:00)
[2019-06-09 12:12] VITALS: BP 112/57
[2019-06-09] MEDS ORDERED: CEFTRIAXON1 GM/50 M1 IV (12:20)
[2019-06-09] MEDS: CEFTRIAXONE SOD 1 GM/NS 50 ML 50 ML IV SCH (13:16)
--- NOTE | 2019-06-09 13:27 | Discharge Summary ---
PERTINENT HISTORY AND PHYSICAL FINDINGS/CHIEF COMPLAINT: Broken hip. HISTORY OF PRESENT ILLNESS: The patient is an 84-year-old female, admitted with complaints of a right hip pain. She admits from [facility] and fell while getting out of bed. Hip x-ray showed acute fracture of the right inferior pubic ramus. The history of present illness and history are from the care home record and from the patient's daughter. PAST MEDICAL HISTORY: COPD, gastroesophageal reflux disease, depression, anemia, hyperlipidemia, dementia, anxiety, glaucoma, hypertension, atrial fibrillation, peripheral vascular disease, and heart failure of unknown type. PAST SURGICAL HISTORY: PCI left lower extremity, cholecystectomy, pessary, knee surgery, AAA repair, abdominal aortic aneurysm, and appendectomy. FAMILY HISTORY: Noncontributory. SOCIAL HISTORY: Quit alcohol and tobacco use eight years ago. ALLERGIES: NO KNOWN ALLERGIES. ADMITTING DIAGNOSES: 1. Acute right inferior pubic ramus fracture. 2. Dementia. 3. Anxiety/depression. 4. Glaucoma. 5. Hypertension. 6. Atrial fibrillation. DISCHARGE DIAGNOSES: 1. Acute right inferior pubic ramus fracture. 2. Dementia, Parkinson's, agitation/combative, improved. 3. Acute Escherichia coli urinary tract infection, present on arrival. 4. Chronic systolic congestive heart failure with aortic stenosis and aortic regurgitation with ejection fraction 30%. 5. Uncontrolled hypertension. 6. 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 7. Gastroesophageal reflux disease. 8. Status post fall at the care home. HOSPITAL COURSE: On admission, WBCs 13.24, hemoglobin 13.7, hematocrit 42.4, and platelets 240. Sodium 134, potassium 4.4, chloride 97, CO2 of 28, BUN 13, creatinine 0.84, and GFR greater than 60. Calcium 9.5. LFTs were within normal limits. B type nitrate peptide 315.4. Her hemoglobin A1c was 4.9% on June 06. Magnesium slightly low at 1.7. Phosphorus was 2.4. Her urinalysis showed trace protein, trace ketones, 1+ blood, 1+ leukocyte esterase, 6-10 RBCs, 11-20 WBCs, and many bacteria. Her final urine culture showed E coli that is sensitive to Rocephin. It is resistant to Levaquin and resistant to Bactrim. The patient's hip x-ray did show an acute fracture of the right inferior pubic ramus. The chest x-ray showed left basilar opacity could be due to combination of atelectasis or effusion. Lumbar spine CT showed no acute lumbar spine fracture, nondisplaced right lateral sacral fracture, degenerative canal stenosis, moderate T11 and T12, severe T4-L5 and moderate L5-S1 advanced multilevel degenerative changes with advanced multilevel disk degeneration, facet arthrosis and multilevel degenerative listhesis. CT of the abdomen and pelvis without contrast showed mildly displaced fracture of the right inferior pubic ramus. The patient was seen by orthopedic physician, Dr. King. Per his note, if CT demonstrates only superior and inferior pubic ramus fracture, the patient is weightbearing as tolerated, analgesics, DVT prophylaxis, plan for physical therapy as soon as possible. Per documentation by Physical Therapy, the patient was seen on June 07 and the patient had poor safety awareness. She was assisted with bed mobility and with wheelchair transfers. However, the patient was not able to be left sitting up on her own due disorientation, showed a poor response to education. She does complain of right hip pain due to the right inferior pubic ramus fracture since her fall. There were times when the patient was very agitated and combative, Ativan was used p.r.n. and Psychiatry was consulted. Per the Psychiatry consultation note by Mignon Red, assessment included unspecified dementia with behavioral disturbances, unspecified psychosis, and history of anxiety. Plan was to add Zyprexa 2.5 mg p.o. every 6 hours p.r.n., add Haldol 1 mg IM every 6 hours p.r.n. Continue with Ativan p.r.n. IV. Reduce Ativan 0.5 mg p.o. t.i.d. to 0.5 mg p.o. b.i.d. Continue the Celexa daily by plan and plan to reduce it as possible. The patient's mood is much better. A call was placed to Dr. King to further discuss the case, awaiting return call. The patient was agitated today, not currently screaming at staff or combative. Today's vital signs, temperature 96.4 with T-max 97.6, heart rate 60, blood pressure 114/58, respirations 16, and oxygen saturation 96%. Most recent labs on June 07, sodium 133, potassium 4.3, chloride 103, CO2 of 22, BUN 13, creatinine 0.65, and glucose 87. WBCs 9.46, hemoglobin 12.9, hematocrit 39.8, and platelets 173. The patient is to continue with regular diet. Activity level as tolerated. Weightbearing as tolerated. We will continue her IV Rocephin at the care home for about 5 more days. She did have an echocardiogram done on June 04, which showed an ejection fraction estimated to be about 30%, aortic stenosis, aortic regurgitation, pleural effusion. The patient was combative at the time the study was taken. The patient to follow up with her PCP, Dr. Cindy Hobbs and her accepting physician at the care home. Dictated by Jluis Duran NP MD NILAM ClemensP/SILVINOL /[id number]
--- NOTE | 2019-06-09 14:00 | NUR ---
PATIENT ASSISTED WITH FEEDING, NO SWALLOWING DIFFICULTY OBSERVED. REPOSITIONED IN BED. CALL LIGHT AT REACH.
[2019-06-09] MEDS ORDERED: TYLENOL WITH C1 EACH PO (14:03)
[2019-06-09 16:10] VITALS: BP 137/60
--- NOTE | 2019-06-09 17:00 | NUR ---
PATIENT TRANSFERRED TO SNF. REPORT GIVEN TO RECEIVING NURSE. IV TO RIGHT WRIST INTACT AND PATENT. ALL PERSONAL ITEMS TAKEN WITH PATIENT. PATIENT'S SON AND DAUGHTER NOTIFIED OF TRANSFER. LEFT UNIT ON STRETCHER PER AMBULANCE.
--- NOTE | 2019-06-09 18:43 | Progress Note ---
DATE: 06/09/2019 SUBJECTIVE: The patient is evaluated and events none. The patient is in the room. She is alert, awake, and oriented to situation. She is doing better, less manic. She is not paranoid. She denies any depression. Denies anxiety. She denies any hallucination. She denies any side effects to medication. She is calmer. ASSESSMENT: 1. Unspecified psychosis. 2. Unspecified dementia with behavioral disturbances. 3. History of anxiety. PLAN: 1. Continue Zyprexa 2.5 mg p.o. at bedtime. 2. Continue p.r.n. Zyprexa. 3. Monitor for mood. 4. Supportive therapy. 5. Discussed with Medico, [employer]. 6. Continue other medication from a psych. Dictated by Mignon Red PA-C MD DO Clemens/SHERRY /[id number]
--- NOTE | 2019-06-12 12:11 | Progress Note ---
DATE: 06/08/2019 Psychiatric Progress Note Dictating for Kirk Joshi MD SUBJECTIVE: The patient is evaluated and events noted. The patient is in room. She is alert, awake, and oriented to situation. She is calm and cooperative. She is alert, awake, and oriented to self. She does not know where she is. She is not calm. She is agitated. She is paranoid and manic. She thinks people are hurting her. She is hyper hindu. She claims that she is depressed because she wants to go home. She denies any hallucination. She denies any suicidal ideation. She is taking her medication, no side effects are seen. As per nurse, the patient has been agitated, paranoid, not eating. She is not combative. ASSESSMENT: 1. Unspecified psychosis. 2. Unspecified dementia with behavior disturbances. 3. History of anxiety. PLAN: 1. Continue Zyprexa p.r.n. 2. Continue Haldol p.r.n. IM. 3. Continue Ativan p.r.n. IV. 4. DC Ativan 0.5 mg p.o. b.i.d. 5. Reduce Celexa. 6. Add Zyprexa 2.5 mg p.o. at bedtime. 7. Monitor for agitation and mood. 8. Discussed with nursing staff. Dictated by Mignon Red PA-C Kirk Joshi MD QTV/MODL /[id number]
== END 2019-06-09 17:34 | DRG 689 ==
LOC: ER 06:00 → ERHOLD 08:07 → MED/SURG3 10:30 → OBSVTOIN 06-06 17:56
PROVIDERS: ADMIT Internal Medicine; ATTEND Internal Medicine
DX: N39.0 Urinary tract infection, site not specified (principal); G93.41 Metabolic encephalopathy; I50.22 Chronic systolic (congestive) heart failure; F03.91 Unspecified dementia, unspecified severity, with behavioral disturbance; F29 Unspecified psychosis not due to a substance or known physiological condition; I11.0 Hypertensive heart disease with heart failure
CPT/HCPCS: 36415; 71045; 72131; 72192; 73522; 80048; 80053; 81001; 83036; 83735; 83880; 84100; 84443; 85025; 85610; 85730; 87040; 87086; 87186; 93306; 96360; 96361; 97139; 99251; 99284; G0378; J0360; J0696; J2060; J3475; J7030

== ENCOUNTER 2020-07-01 14:40 | Emergency (ER) | payer MEDICARE, OTHER ==
[~2020-07-01] VITALS: Ht 304.8 cm; Wt 54.4 kg
[~2020-07-01 14:40] MED LIST: ASCORBIC ACID500 MG PO; ASPIR 8181 MG PO; CARBIDOPA-LEVO1 EACH PO; CEFTRIAXON1 GM/50 M1 IV; CITALOPRAM HBR20 MG PO; EZETIMIBE10 MG PO; FERROUS SULFAT325 MG PO; GUAIFENESI100 MG/5 M PO; Haloperidol Lactate IM; IPRAT-ALBUT 0.5-3 ML INH; LOPRESSOR25 MG PO; Lorazepam PO; MAALOX MAXIMUM355 ML PO; NEPHRO-VITE TABL1 EA PO; NITROGLYCERIN0.4 MG SL; OMEPRAZOLE40 MG PO; OSELTAMIVIR PHO75 MG; SIMVASTATIN40 MG PO; SODIUM CHLORIDE1 GM PO; TIMOLOL MALEATE5 M1; TIMOLOL OU; TRAVATAN Z OD; TRAVOPROST2.5 ML OU; TYLENOL WITH C1 EACH PO; ZYPREXA5 MG PO
[2020-07-01] MEDS ORDERED: SODIUM CHLORIDE 0.9% 1000ML 1,000 ML IV STA (16:01)
[2020-07-01] MEDS ORDERED: PANTOPRAZOLE 40 MG 10ML VIAL IV STA (16:01)
[2020-07-01] MEDS ORDERED: PIPERACILLIN/TAZOBAC 3.375 GM in SODIUM CHLORIDE 0.9% 50ML 50 ML IV ONE (16:15)
[2020-07-01 16:16] LABS: BASOPHILS # (AUTO) 0.1 (0.0-0.1); BASOPHILS % 0.4 % (0.0-1.0); EOSINOPHILS % 0.2 % (0.0-6.0); HEMATOCRIT 48.1 % (34.2-44.1); HEMOGLOBIN 14.5 g/dL (12.0-16.0); LYMPHOCYTES # (AUTO) 2.8 (1.0-3.2); LYMPHOCYTES % 20.9 % (18.0-39.1); MEAN CORPUSCULAR HEMOGLOBIN 27.3 pg (28-32); MEAN CORPUSCULAR HGB CONC 30.1 g/dL (31-35); MEAN CORPUSCULAR VOLUME 90.4 fL (81-99); MONOCYTES % 7.2 % (4.4-11.3); NEUTROPHILS # (AUTO) 9.6 (2.1-6.9); NEUTROPHILS % 70.9 % (38.7-80.0); PLATELET COUNT 334 x10e3/uL (140-360); RED BLOOD COUNT 5.32 x10e6/uL (3.6-5.1); RED CELL DISTRIBUTION WIDTH 14.6 % (11.7-14.4)
[2020-07-01 16:33] LABS: PROTHROMBIN TIME 13.8 seconds (11.9-14.5)
[2020-07-01 16:34] LABS: PARTIAL THROMBOPLASTIN TIME 35.2 seconds (23.8-35.5)
[2020-07-01 16:35] LABS: ALBUMIN 3.2 g/dL (3.5-5.0); ALBUMIN/GLOBULIN RATIO 0.8 (0.8-2.0); CALCIUM 8.8 mg/dL (8.4-10.2); CREATININE, SERUM 1.47 mg/dL (0.57-1.11); MAGNESIUM 3.2 MG/DL (1.3-2.1); POTASSIUM 3.9 mmol/L (3.5-5.1)
[2020-07-01 16:44] LABS: CREATINE KINASE MB 0.6 ng/mL (0-5.0)
[2020-07-01 16:45] LABS: ANION GAP 13.9 mmol/L (8-16)
[2020-07-01 16:46] LABS: B-TYPE NATRIURETIC PEPTIDE2 80.7 pg/mL (0-100)
[2020-07-01 17:25] LABS: CLARITY,URINE SL CLOUDY (CLEAR); COLOR,URINE YELLOW (YELLOW); KETONES,URINE TRACE (NEGATIVE); LEUKOCYTE ESTERASE ,URINE MODERATE (NEGATIVE); NITRITE,URINE NEGATIVE (NEGATIVE); PROTEIN,URINE DIPSTICK 2+ (NEGATIVE); URINE UROBILINOGEN 0.2 mg/dL (0.2 - 1)
[2020-07-01 17:36] LABS: BACTERIA,URINE MANY /HPF; EPITHELIAL CELLS,URINE RARE /LPF; RBC,URINE 0-5 /HPF (0-5)
[2020-07-01] MEDS ORDERED: ADENOSINE 6 MG/2 ML VIAL IV ONE ×2 (18:15)
[2020-07-01] MEDS ORDERED: SODIUM CHLORIDE 0.9% 1000ML 1,000 ML IV SCH (18:15)
[2020-07-01] MEDS ORDERED: DILTIAZEM HCL 5 MG/ML 5 ML VIAL IV STA (18:22)
[2020-07-01] MEDS ORDERED: SODIUM CHLORIDE 0.9% 1000ML 1,000 ML ONE (18:27)
[2020-07-01] MEDS ORDERED: DIGOXIN INJ 0.25 MG/ML 2 ML AMP IV ONE (18:30)
[2020-07-01] MEDS ORDERED: HEPARIN SOD (PORCINE) 1000 UNIT/ML SDV IV ONE (18:58)
[2020-07-01] MEDS ORDERED: HEPARIN 25,000 UNIT 1,000 UNIT in DEXTROSE 5% 250ML 250 ML IV SCH (19:00)
[2020-07-01] MEDS ORDERED: HEPARIN 25,000 UNIT DRIP IV ONE (19:17)
[2020-07-02] MEDS ORDERED: METOPROLOL TARTRATE INJ 1 MG/ML VIAL IV SCH
== END 2020-07-01 22:31 | disposition other institution (70) ==
LOC: ER 15:39
DX: R53.1 Weakness (principal); I47.1 Supraventricular tachycardia; I48.91 Unspecified atrial fibrillation; R94.4 Abnormal results of kidney function studies; N39.0 Urinary tract infection, site not specified; E87.0 Hyperosmolality and hypernatremia; E86.0 Dehydration; Z20.822 Contact with and (suspected) exposure to COVID-19; R94.31 Abnormal electrocardiogram [ECG] [EKG]
CPT/HCPCS: 36415; 70450; 71045; 80053; 81001; 82550; 82553; 83605; 83735; 83880; 84484; 85025; 85610; 85730; 87040; 87071; 87086; 87205; 93005; 99284; C9113; J0153; J1160; J1644; J2543; J7030; U0002